=== PATIENT | male | born 1960 | race African-American/Black ===

== ENCOUNTER 2019-05-18 14:03 | Inpatient (IN) | payer OTHER ==
[~2019-05-18] VITALS: Ht 182.9 cm; Wt 122.5 kg
[2019-05-18 16:23] LABS: BASOPHILS % 0.5 % (0.0-2.0); EOSINOPHILS % 0.5 % (0.0-5.0); HEMATOCRIT. 41.5 % (42.0-52.0); HEMOGLOBIN. 13.8 g/dL (14.0-18.0); MEAN CORPUSCULAR HEMOGLOBIN 30.7 pg (28.0-32.0); MEAN CORPUSCULAR VOLUME 92.6 fL (80.0-94.0); MONOCYTES % 6.2 % (2.0-8.0); NEUTROPHILS % 78.8 % (40.0-76.0); PLATELET 212 x1000/uL (130-400); RED BLOOD CELL COUNT 4.48 mill/uL (4.7-6.1); RED CELL DISTRIBUTION WIDTH 14.2 % (11.6-14.6)
[2019-05-18 16:25] LABS: CHLORIDE 108 mEq/L (98-107)
[2019-05-18] MEDS ORDERED: ASPIRIN 81MG TABLET PO ONE (18:30)
[2019-05-18] MEDS ORDERED: ENOXAPARIN 100MG/ML SYR SUBCUT ONE (21:15)
[2019-05-18 22:45] VITALS: BP 118/56
[2019-05-18 23:45] VITALS: BP 118/56
[2019-05-19] MEDS ORDERED: ATOR40TA70 PO (00:27)
[2019-05-19] MEDS ORDERED: LISI-604 PO (00:27)
[2019-05-19] MEDS ORDERED: ONDANSETRON HCL 4MG/2ML INJ IV PRN (00:30)
[2019-05-19 04:00] VITALS: BP 106/58
[2019-05-19 06:55] LABS: CHLORIDE 109 mEq/L (98-107)
[2019-05-19 07:01] LABS: LDL CHOLESTEROL 59 mg/dL (5-100)
[2019-05-19 07:03] LABS: HDL CHOLESTEROL 39 mg/dL (40-59)
[2019-05-19 07:25] LABS: BASOPHILS % 0.6 % (0.0-2.0); EOSINOPHILS % 1.9 % (0.0-5.0); HEMATOCRIT. 37.2 % (42.0-52.0); HEMOGLOBIN. 12.6 g/dL (14.0-18.0); MEAN CORPUSCULAR VOLUME 91.7 fL (80.0-94.0); MEAN PLATELET VOLUME 8.8 fl (7.4-10.4); MONOCYTES % 6.1 % (2.0-8.0); NEUTROPHILS % 54.4 % (40.0-76.0); PLATELET 186 x1000/uL (130-400); RED BLOOD CELL COUNT 4.06 mill/uL (4.7-6.1); RED CELL DISTRIBUTION WIDTH 14.3 % (11.6-14.6)
[2019-05-19 08:00] VITALS: BP 113/68
[2019-05-19] MEDS ORDERED: ENOXAPARIN 30MG/0.3ML SYR SUBCUT SCH (09:00)
[2019-05-19] MEDS ORDERED: ASPIRIN 325MG EC TABLET PO SCH (09:00)
[2019-05-19] MEDS ORDERED: METOPROLOL TARTRATE 25MG TABLET PO SCH (09:00)
[2019-05-19] MEDS ORDERED: ENOXAPARIN 40MG/0.4ML SYR SUBCUT SCH (09:00)
[2019-05-19] MEDS ORDERED: LISINOPRIL 20MG TABLET PO SCH (09:00)
[2019-05-19] MEDS ORDERED: ACETAMINOPHEN 325MG TABLET PO PRN (09:30)
[2019-05-19 12:00] VITALS: BP 123/67
[2019-05-19 16:00] VITALS: BP 123/84
[2019-05-19 16:11] VITALS: BP 123/84
[2019-05-19] MEDS ORDERED: ATORVASTATIN CALCIUM 40MG TABLET PO SCH (21:00)
== END 2019-05-19 16:45 | disposition home or self-care (01) | DRG 74 ==
LOC: ER 14:03 → EDBEDREQ 18:29 → 6WST 21:27 → EDBEDREQTM 21:31 → EDBEDREQ 21:31 → ENRESERV 21:38
PROVIDERS: ADMIT Internal Medicine; ATTEND Internal Medicine
DX: G90.8 Other disorders of autonomic nervous system (principal); D64.9 Anemia, unspecified; E66.9 Obesity, unspecified; E78.00 Pure hypercholesterolemia, unspecified; E78.5 Hyperlipidemia, unspecified; E87.8 Other disorders of electrolyte and fluid balance, not elsewhere classified; I10 Essential (primary) hypertension; Z68.36 Body mass index [BMI] 36.0-36.9, adult; Z71.89 Other specified counseling
CPT/HCPCS: 36415; 71045; 80048; 80053; 80061; 83735; 83880; 84443; 84484; 85025; 93005; 99291; J1650